=== PATIENT | female | born 1985 | race Caucasian/White ===

== ENCOUNTER 2018-11-29 15:48 | Inpatient (IN) ==
[2018-11-29] MEDS ORDERED: METHYLERGONOVINE MALEATE 0.2 MG/1 ML VIAL IM PRN (16:37)
[2018-11-29] MEDS ORDERED: diphenhydrAMINE 50 MG/1 ML VIAL IVP PRN ×2 (16:37→23:08)
[2018-11-29] MEDS ORDERED: LIDOCAINE HCL 2 % 10 ML JELLY URO-JECT TOPICAL PRN (16:37)
[2018-11-29] MEDS ORDERED: Naloxone Inj 0.01 MG in Sodium Chloride 0.9% vial 1 ML IVP PRN ×2 (16:37→23:08)
[2018-11-29] MEDS ORDERED: FAMOTIDINE 20 MG/2 ML VIAL IVP PRN ×2 (16:37)
[2018-11-29] MEDS ORDERED: ONDANSETRON 4 MG/2 ML VIAL IVP PRN (16:37)
[2018-11-29] MEDS ORDERED: MISOPROSTOL 200 MCG TABLET RECTAL PRN (16:37)
[2018-11-29] MEDS ORDERED: Lidocaine 1% 10 MG/ML - 20 ML VIAL SUBCUT PRN (16:37)
[2018-11-29] MEDS ORDERED: TERBUTALINE SULFATE 1 MG/1 ML SDV SUBCUT PRN (16:37)
[2018-11-29] MEDS ORDERED: BUTORPHANOL TARTRATE 2 MG/1 ML VIAL IVP PRN ×2 (16:37→23:08)
[2018-11-29] MEDS ORDERED: Misoprostol Tab 100 MCG TAB VAGINAL PRN (16:37)
[2018-11-29] MEDS ORDERED: Zolpidem Tab 5 MG TAB PO PRN (16:37)
[2018-11-29] MEDS ORDERED: Phenylephrine Inj 50 MCG in Sodium Chloride 0.9% vial 0.5 ML IVP PRN ×2 (16:37→23:08)
[2018-11-29] MEDS ORDERED: OXYTOCIN 10 UNIT/1 ML IM PRN (16:37)
[2018-11-29] MEDS ORDERED: Nalbuphine Inj 20 MG/ML Ampule IVP PRN ×2 (16:37→23:08)
[2018-11-29] MEDS ORDERED: Carboprost Inj 250 MCG/ML AMP IM PRN (16:37)
[2018-11-29] MEDS ORDERED: NALOXONE 0.4 MG/1 ML VIAL IVP PRN ×2 (16:37→23:08)
[2018-11-29] MEDS ORDERED: Metoclopramide Inj 10 MG/2 ML VIAL IV PRN (16:37)
[2018-11-29] MEDS ORDERED: LIDOCAINE W/ SODIUM BICARB 0.5 ML SYR SUBD PRN (16:37)
[2018-11-29] MEDS ORDERED: CefOXitin Inj 2 GM in Sodium Chloride 0.9% 100 ML IV PRN (16:37)
[2018-11-29] MEDS ORDERED: CITRIC ACID/SODIUM CITRATE 30 ML CUP PO PRN (16:37)
[2018-11-29] MEDS ORDERED: CALCIUM CARBONATE 500 MG (TUMS) CHEWABLE TABLET PO PRN (16:37)
[2018-11-29] MEDS ORDERED: Oxytocin 20 Units + LR 20 UNIT/1,000 ML BAG IV SCH ×2 (16:45→17:45)
[2018-11-29 17:32] LABS: Hematocrit [HCT] 39.3 % (37.0-47.0); Hemoglobin [HGB] 13.5 g/dL (12.0-16.0); MEAN CORPUSCULAR HEMOGLOBIN 31.3 PG (27-31); MEAN CORPUSCULAR HGB CONC 34.4 g/dL (33-37); MEAN PLATELET VOLUME 10.4 FL (7.4-12.2); RED BLOOD COUNT 4.32 10^6/uL (4.20-5.40)
[2018-11-29] MEDS: Lactated Ringers-OB Dept 1,000 ML PRIMARY IV SCH ×2 (17:49→22:26)
[2018-11-29] MEDS: fentaNYL Inj 100 MCG/2 ML VIAL IV PRN ×2 (22:05→22:17)
[2018-11-29] MEDS ORDERED: Fent/Bupiv 2mcg/0.0625% Epid 250 ML ONE (22:55)
[2018-11-29] MEDS ORDERED: LIDOCAINE MPF 2% - 5 ML (20 MG/1 ML) ONE (22:55)
--- NOTE | 2018-11-29 23:04 | CRNA.PROGR ---
Anesthesia Time - Procedure/Recovery Time Start Date: 11/29/18 End Date: 11/30/18 Anesthesia : Time In: 22:33 Anesthesia : Time Out: 04:15 Anesthesia : Total Time: 342 - Total Anesthesia Time Total Anesthesia Time (minutes): 342 - Other Weight: 87.18 kg Height: 5 ft 9 in Body Mass Index (BMI): 28.3 Physical Status: P2 Anesthesia Type: Epidural Obstetrics: Planned vaginal delivery w/ neuraxial labor anesthesia/analog
[2018-11-29] MEDS ORDERED: ePHEDrine Inj 50 MG/ML AMP IVP PRN (23:08)
--- NOTE | 2018-11-29 23:08 | CRNA.PROCE ---
Central Neuraxis Block Placemt - - Type of Block: Epidural Reason for Block: Analgesia Moniters Used During Block: SPO2, NIBP Skin Prep Used: Betadine (Three sponges) Draped: Yes Skin Infiltration - Enter Amount Used in Comment Field: 1% Xylocaine (mL): Yes (1.5) Spinal Needle Used: 22 Reena 80 mm Local Anesthetic - Enter Amount Used in Comment Field: 1.5 % Xylocaine with Epinephrine 1:200,000 (mL): Yes (4 ml), Other Local Anesthetic: Yes (10 ml 2% mpf lido via epidural. 2255 and 2300) Number of Centimeters Catheter Threaded: 3.5 (no parasthesia) Bioclusive Dressing Applied: Yes (skin prep under all adhesive) - - Additional Details: Here for cervical ripening. Now spontaneous membrane rupture and reported to be greater than 6 cm dialated. Very uncomfortable with contractions even with recent 100 mcg of Fentanyl iv. Started infusion, then with bolused 2% lido along with infusion too comfortable. Shut off infusion for 30 min. Restarted infusion then uncomfortable. Uncomfortable, Left hip, bolused with 5 ml of lido mpf. Baby delivered. No maternal perineum repairs required. Anesthesia Time - Other Weight: 87.18 kg Height: 5 ft 9 in Body Mass Index (BMI): 28.3
[2018-11-29] MEDS ORDERED: fentaNYL 2 MCG/BUPIVACAINE 0.0625%/NS 0.9% 250 ML BAG EPIDURAL ONE (23:09)
[2018-11-29] MEDS: ePHEDrine Inj 50 MG/ML AMP IVP PRN ×2 (23:32→23:41)
--- NOTE | 2018-11-30 00:14 | OB.PROGRES ---
Date of Service: 11/30/18 Time of Service: 00:09 Interval History: Pt presented to labor and delivery at 1600 today for induction of labor at term. She has had serial u/s recently for uterine size greater than dates. Most recently, pt had an EFW of 8#12oz on 11/25. Her last delivery 3 years ago was notable for a 3rd degree vaginal laceration. The pt had no issues after the repair. Because of the size of this baby and her h/o of the third degree laceration, she was offered a primary section, which she declined. When she presented to labor and delivery today, she was santosh every 2-5 minutes, but was not feeling them. Her cervix was 4-5 outer os and the nurse was unable to reach her inner os due to the baby being high and the cervix posterior. Because of her spontaneous contractions, low dose pitocin was started. The pt got in the whirlpool bath and was 4-5/60/-1 when she got out. She had spontaneous rupture of membranes a short time later. She has progressed on her own to 8 cm and had an epidural placed for analgesia. I was called by the nurse at around 2300 because the baby was having a few late decelerations, which resolved by the time that I arrived on the L&D unit. The pt is currently comfortable with her epidural. Objective - Cervical Exam Cervical Exam: 8/100/-1 per RN at 2330 [place]: currently every 2-5 minutes, palpating moderate Heart Rate: 140s, moderate variability, occasional early and late decelerations. Nothing repetitive. Heart Rate Interpretation Category: Category II - Labs CBC and BMP: 11/29/18 16:37 - Vital Signs Last Taken Vital Signs: Vital Signs - Last Taken Temperature 97.6 F 11/29/18 16:58 Pulse Rate 71 11/29/18 18:30 Respiratory Rate 18 11/29/18 18:30 Blood Pressure 121/80 11/29/18 18:30 Pulse Ox 97 11/29/18 16:58 Assessment and Plan - Patient Problems (1) Active labor at term Current Visit: Yes Status: Acute - Assessment / Plan Additional Assessment/Plan Details: -epidural for pain control. -currently 8 cm and has been for an hour. Will augment with pitocin as needed. -GBS negative. -late decelerations have resolved with position changes and treatment of hypotension related to her epidural placement. -discussed risk of shoulder dystocia with nursing staff, they will be ready at the time of delivery. -expectant management.
[2018-11-30] MEDS ORDERED: LIDOCAINE MPF 2% - 5 ML (20 MG/1 ML) ONE (02:31)
--- NOTE | 2018-11-30 04:46 | OB.DEL.SUM ---
Delivery Note Delivery Summary: Pt is a 33 yo G4 now P2 at 39 1/7 weeks by early u/s who presented for induction secondary to suspected macrosomia. Her last u/s showed an EFW of 8#12oz. Upon admission, she was santosh spontaneously every 2-5 minutes. She was augmented with 1 mU of pitocin because she wasn't feeling her contractiosn. Her cervix was c/th/high. GBS negative. After a short stay in the [facility], she was 4/60/-1. She labored until 8 cm, at which time an epidural was placed for analgesia. She was still 8 cm 1 hour later. Intermittent early and late decelerations were noted. Position changes were completed. Pt remained 8-9 cm for several hours and at 1 point, she was noted to have a significantly swollen cervix. For this, she was given benedryl 25 mg IV x 1 dose. She was finally complete and +1 at 0350. She pushed well and delivered a viable male over an intact perineum at 0356. The baby's hand was up by his face at the time of delivery. The baby's nose and mouth were suctioned with the bulb suction and he was placed on mom's chest. Cord clamping was delayed x 45 seconds. The cord was then doubly clamped by myself and cut by the father. Cord blood and cord gases were obtained for analysis. The placenta delivered spontaneously and intact at 0406. There was a 3 vessel cord. 20 mU of pitocin were infused. The vagina and perineum were examined and a first degree vaginal and perineal laceration was noted and repaired in the normal fashion with 3-0 vicryl rapide suture. A second superficial laceration was noted to the right of the urethra on the medial side of the labia minora--this was not bleeding and was thus not repaired. There was excellent hemostasis noted. EBL 250 cc. Apgars were 8 at 1 minute and 9 at 5 minutes. Both mom and baby tolerated delivery well and are in stable condition at this time. - Patient Problems (1) Active labor at term Current Visit: Yes Status: Acute
[2018-11-30] MEDS ORDERED: HYDROcodone-APAP 5 MG -325 MG TABLET PO PRN (04:57)
[2018-11-30] MEDS ORDERED: Oxytocin 20 Units + LR 20 UNIT/1,000 ML BAG IV SCH (04:57)
[2018-11-30] MEDS ORDERED: CALCIUM CARBONATE 500 MG (TUMS) CHEWABLE TABLET PO PRN (04:57)
[2018-11-30] MEDS ORDERED: diphenhydrAMINE 25 MG CAPSULE PO PRN (04:57)
[2018-11-30] MEDS ORDERED: BENZOCAINE/MENTHOL SPRAY 56 GM BOTTLE TOPICAL PRN (04:57)
[2018-11-30] MEDS ORDERED: Ondansetron ODT Tab 4 MG TAB PO PRN (04:57)
[2018-11-30] MEDS ORDERED: LIDOCAINE HCL 2 % 10 ML JELLY URO-JECT TOPICAL PRN (04:57)
[2018-11-30] MEDS ORDERED: LANOLIN HPA 40 GM TUBE TOPICAL PRN (04:57)
[2018-11-30] MEDS ORDERED: Nalbuphine Inj 20 MG/ML Ampule IVP PRN (04:57)
[2018-11-30] MEDS ORDERED: DIPH,PERTUSS,TET(ADACEL) VAC/PF 0.5 ML (Tdap) IM ONE (04:57)
[2018-11-30] MEDS ORDERED: ACETAMINOPHEN 325 MG TABLET PO PRN (04:57)
[2018-11-30] MEDS ORDERED: GLYCERIN/WITCH HAZEL 1 BOX TOPICAL PRN (04:57)
[2018-11-30] MEDS ORDERED: ONDANSETRON 4 MG/2 ML VIAL IVP PRN (04:57)
[2018-11-30] MEDS ORDERED: diphenhydrAMINE 50 MG/1 ML VIAL IVP PRN (04:57)
[2018-11-30] MEDS: IBUPROFEN 800 MG TABLET PO PRN ×2 (07:03→16:28)
[2018-11-30] MEDS: Lactated Ringers-OB Dept 1,000 ML PRIMARY IV SCH (09:50)
[2018-11-30] MEDS: DOCUSATE 100 MG CAPSULE PO SCH ×2 (10:00→22:28)
[2018-12-01] MEDS: IBUPROFEN 800 MG TABLET PO PRN ×2 (01:25→09:42)
[2018-12-01 05:00] LABS: Hematocrit [HCT] 33.4 % (37.0-47.0); MEAN CORPUSCULAR HEMOGLOBIN 30.8 PG (27-31); MEAN CORPUSCULAR HGB CONC 32.9 g/dL (33-37); MEAN CORPUSCULAR VOLUME 93.6 FL (81-99); RED BLOOD COUNT 3.57 10^6/uL (4.20-5.40)
[2018-12-01 05:10] VITALS: O2SAT 98
[2018-12-01 08:24] VITALS: BP 114/72; RESP 16; TEMP 97.9
[2018-12-01] MEDS ORDERED: RHO(D) IMMUNE GLOBULIN 1500 UNIT(300 mcg)SYRIN IM PRN (09:00)
[2018-12-01] MEDS ORDERED: Prenatal Multivitamin Tab 1 TAB TAB PO SCH (09:00)
--- NOTE | 2018-12-01 09:35 | OB.PROGRES ---
Subjective Post Day: 1 Pain Management: PO Fink Catheter: No Flatus: Yes Lochia Color: Rubra/Red Scant < 10 ml Diet: Regular Feeding Method: Exculsively Ambulating: Yes Concerns / Additional Information: Hips are feeling much better today. No other complaints. Objective - General General Appearance: POSITIVE: No Acute Distress, Cooperative - Cardiovacular Cardiovascular Exam: POSITIVE: RRR, No Murmur Edema: +1 Pedal Edema Extremities: Negative Ashley's - Bilaterally - Respiratory Respiratory Exam: POSITIVE: Clear to Auscultation - Bilaterally, Breathing Non Labored Assesstment / Plan (1) Active labor at term Current Visit: Yes Status: Resolved (2) Status post normal vaginal delivery Current Visit: Yes Status: Acute Assessment / Plan: -routine cares. -Rh negative--baby is rh positive, pt received rhogam last noc. -breast feeding going well. -will check a 2 hour GTT at 6 weeks PP. -rubella immune. -f/u at 6 weeks PP.
[2018-12-01] MEDS: DOCUSATE 100 MG CAPSULE PO SCH (09:42)
== END 2018-12-01 12:25 | disposition home or self-care (01) | DRG 807 ==
LOC: OBIP 15:48
PROVIDERS: ADMIT Family Medicine; ATTEND Family Medicine